=== PATIENT | female | born 1980 | race Caucasian/White ===

== ENCOUNTER 2018-05-19 07:18 | Outpatient (CLI) | payer BC ==
--- NOTE | 2018-05-19 11:06 | CT ---
CT ABDOMEN AND PELVIS WITH ORAL AND IV CONTRAST: Date: 05/19/18 HISTORY: Chronic abdominal pain. FINDINGS: The lung bases are unremarkable. No calcified gallstones are seen. The liver, spleen, pancreas, right adrenal gland, and kidneys are normal. There are two nodules in the left adrenal gland measuring 1.5 cm and 1.0 cm, respectively. No free air, free fluid, or lymphadenopathy is seen. The small bowel loops are not abnormally dilated . A normal appearing appendix is noted. There is no evidence of aneurysmal dilatation of the abdomina l aorta. No osteolytic or osteoblastic lesions are seen. The patient is post hysterectomy. There are cystic lesions in the right adnexa measuring 3.0 cm and 1 .8 cm, respectively. IMPRESSION: 1. Indeterminate left adrenal nodules. Dedicated CT scan of the abdomen using the adrenal protocol ( with and without IV contrast) is recommended. 2. Right adnexal cystic masses, likely ovarian. Pelvic ultrasound recommended. POS: [facility]
[2018-05-19] MEDS ORDERED: Iopamidol 370 76% 100 ML VIAL ONE (13:55)
== END 2018-05-19 07:19 | disposition home or self-care (01) ==
LOC: CT 07:18
PROVIDERS: ATTEND Family Medicine
DX: R10.9 Unspecified abdominal pain (principal); R19.7 Diarrhea, unspecified; N83.8 Other noninflammatory disorders of ovary, fallopian tube and broad ligament; Z86.010 Personal history of colon polyps
CPT/HCPCS: 74177

== ENCOUNTER 2018-05-28 09:35 | Outpatient (CLI) | payer BC ==
[2018-05-28] MEDS ORDERED: ISOVUE-370 76%-LOCM 1 ML ONE (12:28)
--- NOTE | 2018-05-28 12:33 | CT ---
CT ABDOMEN WITH AND WITHOUT IV CONTRAST: Date: 05-28-18 History: Left adrenal nodules. Dedicated adrenal mass protocol. Comparison: 05-19-18 FINDINGS: There are small adrenal nodules again seen within the superior, as well as midportion of the left adr enal gland, all of which demonstrate attenuation coefficients most consistent with small adrenal huber omas. However, there is an additional area of nodularity seen in the more inferior aspect of the left adrenal gland, but this demonstrates similar enhancement characteristics to the background of normal left adrenal gland on all phases of imaging and is likely related to normal nodularity of normal adr enal tissue. No right adrenal lesion is seen. Minimal dependent bibasilar atelectasis is noted. The liver, spleen, pancreas, right adrenal gland and bilateral kidneys demonstrate a normal CT appear ance. There has been no interval change from the prior exam. IMPRESSION: 1. Left adrenal nodules, all of which demonstrate precontrast attenuation coefficients compatible wit h small adrenal adenomas. As described on the prior exam, there is also a small nodular density at th e inferior aspect left lobe of the adrenal gland which demonstrates an attenuation coefficient on all phases of imaging which is same as the normal background adrenal gland, and this likely represents n ormal adrenal tissue and represents nodularity of normal adrenal tissue. 2. Above findings reviewed with Dr. Torres who is in agreement with the above findings and kishor t. POS: [facility]
== END 2018-05-28 09:36 | disposition home or self-care (01) ==
LOC: BICCT 09:35
PROVIDERS: ATTEND Family Medicine
DX: R10.9 Unspecified abdominal pain (principal); R19.7 Diarrhea, unspecified; E27.8 Other specified disorders of adrenal gland; D35.00 Benign neoplasm of unspecified adrenal gland; Z86.010 Personal history of colon polyps
CPT/HCPCS: 74170

== ENCOUNTER 2018-10-20 07:36 | Outpatient (CLI) | payer BC ==
[2018-10-20 09:57] LABS: Hemoglobin 13.5 g/dL (12.0-16.0); Mean Corpuscular HGB CONC 33.3 g/dL (32.0-36.0); Mean Corpuscular Hemoglobin 29.6 pg (27.0-31.0); Mean Corpuscular Volume 88.9 fL (78.0-98.0); Mean Platelet Volume 8.9 fL (7.4-10.4); Platelet Count 252 thou/uL (130-400); RBC Distribution Width 12.2 % (11.5-14.5); Red Blood Cell (RBC) Count 4.57 mill/uL (4.20-5.40); White Blood Cell (WBC) Count 6.8 thou/uL (4.8-10.8)
[2018-10-20 09:58] LABS: Bilirubin Negative (Negative); Blood, Urine Negative (Negative); Clarity CLEAR (Clear); Glucose, Urine (Dipstick) Negative (Negative); Leukocyte Negative (Negative); Nitrite Negative (Negative); Protein, Urine (Dipstick) Negative (Neg-Trace); Specific Gravity, Urine 1.012 (1.002-1.036)
[2018-10-20 10:04] LABS: Bacteria/HPF None Seen HPF (None Seen); Hyaline Casts/LPF 0-3 HYALINE CAST LPF (0-3 Hyaline); Pathc Cast-AUWi Flag 0.58 (0-2.49); Squamous Epithelial 0-3 HPF (0-3); WBC/HPF 0-3 HPF (0-3)
[2018-10-20 10:07] LABS: PTT 32.4 SEC (22.9-36.1); Prothrombin Time 13.2 SEC (12.0-14.7)
[2018-10-20 10:24] LABS: Anion Gap 11 mmol/L (10-20); BUN (Urea Nitrogen) 13 mg/dL (7.0-18.7); Calc. Creatinine Clearance 0 mL/min (70-130); Calcium 9.5 mg/dL (7.8-10.44); Carbon Dioxide 23 mmol/L (22-29); Chloride 108 mmol/L (98-107); Estimated GFR-MDRD Greater than 90; Glucose 94 mg/dL (70-105); Potassium 4.4 mmol/L (3.5-5.1); Sodium 138 mmol/L (136-145)
--- NOTE | 2018-10-20 10:33 | RAD ---
CHEST TWO VIEWS: HISTORY: Preoperative radiograph prior to surgery. COMPARISON: None. FINDINGS: Two views of the chest show normal sized cardiomediastinal silhouette. There is no evidence of consol idation, mass, or pleural effusion. The bones are unremarkable. IMPRESSION: No evidence of acute cardiopulmonary disease. POS: [facility]
== END 2018-10-20 07:37 | disposition home or self-care (01) ==
LOC: LABBT 07:36
PROVIDERS: ATTEND Urology
DX: Z01.818 Encounter for other preprocedural examination (principal); E26.9 Hyperaldosteronism, unspecified; E27.9 Disorder of adrenal gland, unspecified
CPT/HCPCS: 71046; 80048; 81001; 85027; 85610; 85730; 87086; 93005; 93010

== ENCOUNTER 2018-10-20 08:00 | Inpatient (IN) | payer BC ==
[2018-10-20 08:31] VITALS: BMI 39.4
[2018-10-29] MEDS ORDERED: Ketamine 50 MG/ML (10ML VIAL) ONE (06:45)
[2018-10-29] MEDS ORDERED: Fentanyl 250 MCG/5 ML VIAL ONE (06:45)
[2018-10-29] MEDS ORDERED: Phenylephrine HCL 10 MG/ML VIAL ONE (06:46)
[2018-10-29] MEDS ORDERED: Vecuronium 10 MG VIAL ONE ×2 (06:46→10:25)
[2018-10-29] MEDS ORDERED: Fentanyl 100 MCG/2 ML VIAL ONE ×2 (07:03→12:32)
[2018-10-29] MEDS ORDERED: Midazolam HCl 2 mg/2 ml Vial ONE (07:03)
[2018-10-29] MEDS ORDERED: Dexamethasone 4 mg/ml Vial ONE (07:03)
[2018-10-29] MEDS ORDERED: Hydrocortisone Sod Succ/PF 100 mg/2 ml Vial ONE (07:05)
[2018-10-29] MEDS ORDERED: Sodium Chloride 0.9% 0 ML ONE (07:07)
[2018-10-29] MEDS ORDERED: Lidocaine 1% (PF) 30 ML VIAL ONE (07:08)
[2018-10-29] MEDS ORDERED: Hydrocortisone Sod Succ/PF 100 mg/2 ml Vial IVP SCH (07:15)
[2018-10-29] MEDS ORDERED: Glycopyrrolate 0.2 MG/ML 5 ML SYRINGE ONE ×2 (10:25)
[2018-10-29] MEDS ORDERED: Lidocaine 1% PF 5 ML VIAL ONE (10:25)
[2018-10-29] MEDS ORDERED: Ketorolac Tromethamine 30 MG/ML VIAL ONE (10:25)
[2018-10-29] MEDS ORDERED: PROPOFOL 200 MG/20 ML VIAL ONE (10:25)
[2018-10-29] MEDS ORDERED: Ondansetron PF 4 MG/2 ML Vial ONE (10:25)
[2018-10-29] MEDS ORDERED: Dexamethasone 20 MG/5 ML VIAL ONE (10:25)
[2018-10-29] MEDS ORDERED: Ondansetron HCl/PF 4 MG/2 ML Vial IVP PRN (11:02)
[2018-10-29] MEDS ORDERED: Promethazine HCl 25 MG/ML VIAL IM PRN (11:02)
[2018-10-29] MEDS ORDERED: Promethazine HCl 25 MG/ML VIAL SLOW IVP PRN (11:02)
[2018-10-29] MEDS ORDERED: Bupivacaine HCl 0.5%/Epinephrine 1:200,000/PF 30 ml Vial ONE (11:12)
--- NOTE | 2018-10-29 12:16 | OP ---
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 POSTOPERATIVE DIAGNOSIS: Conn syndrome with left adrenal adenoma. PROCEDURE PERFORMED: Robot-assisted laparoscopic left adrenalectomy. INDICATION FOR PROCEDURE: Ms. Vazquez is a 38-year-old white female, who presented to me with a presumptive diagnosis of Conn syndrome. She had excessive aldosterone in circulation with hypertension that was only managed with two antihypertensive medications. CT demonstrated an adenoma on the left and the patient did undergo a sodium suppression test as well as left adrenal vein sampling, both of which confirmed that she had nonsuppressible aldosterone with adrenal vein sampling showing excessive aldosterone production from the left adrenal vein. We discussed robot assisted left adrenalectomy and she has agreed to proceed forward with all risks and benefits discussed. DESCRIPTION OF PROCEDURE: After identification of armband and verification of consent, the patient was brought back to the operating room, where she underwent general anesthesia with endotracheal intubation. She was then placed in the right lateral decubitus in the modified oblique position. All pressure points were padded and the patient was secured to the bed. She was then prepped and draped in usual sterile fashion. After appropriate time-out, a Veress needle entry was performed through the umbilicus with a Veress needle. Insufflation was carried out under high-flow and low pressure until full pneumoperitoneum was achieved. A camera was placed just along the line of the 12th rib just lateral to the rectus abdominis muscle. Additional 8 mm ports were placed just under the costal margin on the left flank and in the left lower quadrant with an business assistant 11 mm port just cephalad to the camera port. These were placed under direct vision. The robot was then docked and the robotic portion of the procedure then begun. Initial inspection demonstrated that the colon and omentum were draped over the spleen. The colon was mobilized and reflected medially to expose the kidney. The greater omentum was just pushed over to the side with some adhesions onto the spleen released. The spleno-diaphragmatic attachments were released to allow for anterior retraction of the spleen. The underlying fat and colonic attachments to the spleen were divided. The colon was mobilized medially and dissection was carried out between the kidney and the spleen until the tail of the pancreas was identified. Dissection was then carried out inferior to the pancreas to get into the space between the kidney and pancreas until the adrenal gland could be visualized. Dissection was then carried out in the medial aspect of the kidney by further reflecting the colon medially until the renal vein was identified. The renal vein was dissected until the adrenal vein was identified emanating from the superior surface of the renal vein. This was circumferentially mobilized and then two Hem-o-singh clips were applied to both superior and inferior on the renal vein. The adrenal vein was then divided using monopolar scissors under sharp dissection. The vessel sealer device was then used to begin dissection posterior to the adrenal gland, taking care not to injure the accessory renal artery, which was identified previously on CT scan. The psoas muscle could be identified and that was dissection plate used for the posterior dissection. The lateral attachments to the pancreas and aorta were divided using the vessel sealer and then the attachments to the superior pole of the kidney were divided using the vessel sealer until the entire adrenal gland was able to be mobilized and brought out from the dissection plane. This was then deposited in the left pericolic gutter. Inspection was carried out into the adrenal bed and there was no additional bleeding noted. The area was very dry. The pancreas looked to be intact. The splenic artery was normal. During the surgery, there was a very small capsulotomy made on the spleen, which was covered with a Surgicel after some gentle cautery, this resulted in excellent hemostasis. Tisseel was brought in and Tisseel spray was splayed onto the area of the capsulotomy on the spleen along with entire pancreas, adrenal bed, renal vein, and near the aorta, where the adrenal vessels had been located. After the Tisseel was applied, the specimen bag was brought in and the adrenal gland was deposited into the bag and brought out through the business assistant port. The drain was brought in due to significant amounts of retraction and manipulation of the pancreas just to ensure that there was no pancreatic leak present. There was none identified with very careful inspection along the entire length of the pancreas, but as a safety precaution, did elect to leave a #10 DEB drain just in the space between the kidney and pancreas. This was left in place and then the colon reflected back into its neutral position. A robot was then undocked, and a Gus Efren closure was performed on the robot camera port, which was a #12. Once this was closed, the pneumoperitoneum was released and the specimen was extracted through the business assistant port by extending the incision approximately an extra centimeter and then opening the fascia. The specimen was extracted through this hole and then the fascia was closed with a [id number] on a 0 Vicryl. The skin was closed with a 4-0 Monocryl in subcuticular fashion with Dermabond applied. The patient was then taken out of positioning, awakened, and taken to PACU for recovery in stable condition. COMPLICATIONS: None. ESTIMATED BLOOD LOSS: 50 mL. RETAINED TUBES AND DRAINS: A 16-[place] Valencia catheter and a #10 DEB drain. SPECIMENS: Left adrenal gland. DISPOSITION: The patient will be admitted to the hospital for postoperative recovery. Once she has fully recovered, she can be discharged and followup will be handled on an outpatient basis. Job ID: [id number]
[2018-10-29] MEDS ORDERED: Promethazine HCl 25 MG/ML VIAL ONE (12:36)
[2018-10-29] MEDS ORDERED: Fentanyl 100 MCG/2 ML VIAL SLOW IVP PRN (13:06)
[2018-10-29] MEDS ORDERED: Bisacodyl 10 MG SUPP PR PRN (13:06)
[2018-10-29] MEDS ORDERED: oxyCODONE 5 MG TAB PO PRN (13:06)
[2018-10-29] MEDS ORDERED: Oxybutynin 5 MG TAB PO PRN (13:06)
[2018-10-29] MEDS ORDERED: Ondansetron PF 4 MG/2 ML Vial IVP PRN (13:06)
[2018-10-29] MEDS ORDERED: hydrALAZINE 20 MG/ML VIAL SLOW IVP PRN (13:06)
[2018-10-29] MEDS ORDERED: Mag-Al 1200 mg/1200 mg/30 ML UDCUP PO PRN (13:06)
[2018-10-29] MEDS ORDERED: Zolpidem Tartrate 5 MG TAB PO PRN (13:06)
[2018-10-29] MEDS ORDERED: Sodium Chloride 0.9% 1,000 ML IV SCH (13:06)
[2018-10-29] MEDS ORDERED: diphenhydrAMINE 50 MG/ML VIAL IVP PRN (13:06)
[2018-10-29 13:38] LABS: Hemoglobin 11.7 g/dL (12.0-16.0); Mean Corpuscular HGB CONC 33.9 g/dL (32.0-36.0); Mean Corpuscular Hemoglobin 30.7 pg (27.0-31.0); Mean Corpuscular Volume 90.5 fL (78.0-98.0); Mean Platelet Volume 8.4 fL (7.4-10.4); Platelet Count 191 thou/uL (130-400); RBC Distribution Width 12.3 % (11.5-14.5); Red Blood Cell (RBC) Count 3.82 mill/uL (4.20-5.40); White Blood Cell (WBC) Count 12.6 thou/uL (4.8-10.8)
[2018-10-29 13:50] LABS: Anion Gap 9 mmol/L (10-20); BUN (Urea Nitrogen) 12 mg/dL (7.0-18.7); Calc. Creatinine Clearance 195 mL/min (70-130); Calcium 8.3 mg/dL (7.8-10.44); Carbon Dioxide 23 mmol/L (22-29); Chloride 109 mmol/L (98-107); Estimated GFR-MDRD Greater than 90; Glucose 131 mg/dL (70-105); Sodium 137 mmol/L (136-145)
--- NOTE | 2018-10-29 14:34 | RAD ---
CHEST 1 VIEW: HISTORY: Evaluate for a pneumothorax. COMPARISON: Chest radiograph 10/20/2018. FINDINGS: The lungs are clear. No pneumothorax or effusion. Cardiac silhouette and mediastinal contour is wit hin normal limits. No acute osseous abnormality. IMPRESSION: No acute intrathoracic abnormality. POS: [facility]
[2018-10-29] MEDS: Ketorolac Tromethamine 30 MG/ML VIAL IVP SCH ×2 (15:05→20:03)
[2018-10-29] MEDS: Acetaminophen 500 MG TAB PO SCH ×2 (15:05→20:04)
[2018-10-29] MEDS: traMADol HCl 50 MG TAB PO SCH ×2 (15:05→20:51)
[2018-10-29] MEDS: CEFAZOLIN 1 GM in Sodium Chloride 0.9% 100 ML IVPB SCH ×2 (15:06→23:28)
[2018-10-29] MEDS: oxyCODONE 5 MG TAB PO PRN ×2 (18:38→23:20)
[2018-10-29] MEDS: Docusate 100 MG CAP PO SCH (20:47)
[2018-10-29] MEDS ORDERED: Gabapentin 300 MG CAP PO SCH (21:00)
[2018-10-30] MEDS: Acetaminophen 500 MG TAB PO SCH ×3 (03:02→13:46)
[2018-10-30] MEDS: traMADol HCl 50 MG TAB PO SCH ×3 (03:03→13:46)
[2018-10-30] MEDS: Ketorolac Tromethamine 30 MG/ML VIAL IVP SCH ×2 (03:04→08:54)
[2018-10-30 05:25] LABS: #Lymphocytes 1.4 thou/uL (1.20-3.40); #Monocytes 0.7 thou/uL (0.11-0.59); #Neutrophils 10.3 thou/uL (1.40-6.50); %Basophils 0.2 % (0.0-1.0); %Eosinophils 0.3 % (0.0-10.0); %Monocytes 5.7 % (0.0-10.0); %Neutrophils 82.8 % (42.0-75.0); Hemoglobin 11.3 g/dL (12.0-16.0); Mean Corpuscular HGB CONC 34.4 g/dL (32.0-36.0); Mean Corpuscular Hemoglobin 31.3 pg (27.0-31.0); Mean Corpuscular Volume 91.1 fL (78.0-98.0); Mean Platelet Volume 8.6 fL (7.4-10.4); Platelet Count 211 thou/uL (130-400); RBC Distribution Width 12.2 % (11.5-14.5); Red Blood Cell (RBC) Count 3.59 mill/uL (4.20-5.40); White Blood Cell (WBC) Count 12.5 thou/uL (4.8-10.8)
[2018-10-30 05:46] LABS: Anion Gap 9 mmol/L (10-20); BUN (Urea Nitrogen) 10 mg/dL (7.0-18.7); Calc. Creatinine Clearance 189 mL/min (70-130); Calcium 8.3 mg/dL (7.8-10.44); Carbon Dioxide 25 mmol/L (22-29); Chloride 107 mmol/L (98-107); Estimated GFR-MDRD Greater than 90; Glucose 92 mg/dL (70-105); Potassium 3.9 mmol/L (3.5-5.1); Sodium 137 mmol/L (136-145)
[2018-10-30 08:30] VITALS: TEMP 97.8
[2018-10-30] MEDS: Docusate 100 MG CAP PO SCH (08:53)
[2018-10-30] MEDS: CEFAZOLIN 1 GM in Sodium Chloride 0.9% 100 ML IVPB SCH (08:54)
[2018-10-30] MEDS ORDERED: DULoxetine 60 MG CAP PO SCH (09:00)
--- NOTE | 2018-10-30 12:00 | PRG ---
DATE OF SERVICE: 10/30/2018 SUBJECTIVE: The patient states that she is feeling very good. Her pain is minimal. She has not had any nausea, vomiting, or significant epigastric pain. She is having some lower back and back discomfort, which is relatively mild. She has been up out of bed walking. She states that she is hungry this morning. OBJECTIVE: VITAL SIGNS: Temperature 97.8, pulse 64, respirations 12, blood pressure 117/76, and saturation 92% on room air. GENERAL: No apparent distress. Communicating and alert. CARDIOVASCULAR: Regular rate and rhythm. ABDOMEN: Soft, nondistended. Appropriately tender to palpation. Positive bowel sounds. Incision is clean, dry, intact. DEB serosanguineous, 15 mL total output from the DEB overnight. : Valencia catheter in place with clear yellow urine. EXTREMITIES: No clubbing, cyanosis, or edema. LABORATORY EVALUATION: The full set of labs in the [facility] system which I have reviewed. Of note, the patient's white count is 12.5 and hemoglobin 11.3. Creatinine is 0.65. ASSESSMENT AND PLAN: A 38-year-old white female with Conn syndrome, status post left adrenalectomy, postoperative day 1. She has no current evidence of pancreatitis or significant postoperative complications. She appears to be recovering well. We will advance her diet to a regular diet. Discontinue her Valencia catheter, however, continue to ambulate. If she eats a regular meal and can go 2 to 3 hours afterwards without any symptoms of epigastric pain, nausea, or vomiting, I think we can take a DEB drain out. She can probably go home. I will see her back in approximately 2 weeks for a postop check. Job ID: [id number]
[2018-10-30 12:30] VITALS: BP 132/86
== END 2018-10-30 16:03 | disposition home or self-care (01) | DRG 615 ==
LOC: SURG A 10-29 06:02
PROVIDERS: ADMIT Urology; ATTEND Urology
PROC: 0GT24ZZ Resection of Left Adrenal Gland, Percutaneous Endoscopic Approach (ICD-10-PCS; principal; 2018-10-29)
PROC: 8E0W4CZ Robotic Assisted Procedure of Trunk Region, Percutaneous Endoscopic Approach (ICD-10-PCS; 2018-10-29)
DX: E26.01 Conn's syndrome (principal); D35.02 Benign neoplasm of left adrenal gland
CPT/HCPCS: 36415; 71045; 80048; 85025; 85027; 88307; J0670; J0690; J1100; J1720; J1885; J2001; J2250; J2370; J2405; J2550; J2704; J3010; J7050

== ENCOUNTER 2018-10-23 09:37 | Outpatient (CLI) | payer BC | END 2018-10-23 09:38 | disposition home or self-care (01) | LOC: LABBT 09:37 | PROVIDERS: ATTEND Urology | DX: Z01.812 Encounter for preprocedural laboratory examination (principal); E26.9 Hyperaldosteronism, unspecified; E27.9 Disorder of adrenal gland, unspecified | CPT/HCPCS: 86850; 86900; 86901 ==